=== PATIENT | female | born 1995 | race Caucasian/White ===

== ENCOUNTER 2017-11-03 04:04 | Emergency (ER) | payer OTHER ==
[~2017-11-03] VITALS: Ht 160 cm; Wt 85.0 kg
[2017-11-03 04:12] VITALS: BP 133/86
--- NOTE | 2017-11-03 04:17 | NUR ---
RETURNED BACK TO LOBBY AMBULATORY, IN STABLE CONDITION , NOT IN RESPIRATORY DISTRESS, A/W FOR BED, ERMD NOTED
--- NOTE | 2017-11-03 05:06 | NUR ---
Patient ambulated to bed 12 with family. RN evaluating patient at bedside.
--- NOTE | 2017-11-03 05:10 | NUR ---
PATIENT PRESENTS TO ED WITH C/O WOKE UP WITH SOB, WITH PAIN ON HER LEFT SIDE OF UPPER BODY. AAOX4 WITH EVEN AND STEADY GAIT; LUNGS CLEAR BL; HR EVEN AND REGULAR; PT DENIES ANY FEVER, CP, AND COUGH AT THIS TIME; PATIENT STATES PAIN OF 9/10 AT THIS TIME; DENIES N/V/D; SKIN IS PINK/WARM/DRY; VSS; PATIENT POSITIONED FOR COMFORT; HOB ELEVATED; BEDRAILS UP X2; BED DOWN. ER MD MADE AWARE OF PT STATUS.
[2017-11-03] MEDS: KETOROLAC 60 MG/2 ML VIAL IM ONE (06:38)
[2017-11-03 06:56] VITALS: BP 102/66
--- NOTE | 2017-11-03 06:56 | NUR ---
Patient discharged with v/s stable. Written and verbal after care instructions given and explained. Patient alert, oriented and verbalized understanding of instructions. Ambulatory with steady gait. All questions addressed prior to discharge. ID band removed. Patient advised to follow up with PMD. Rx of BRICENO AND PREDNISONE given. Patient educated on indication of medication including possible reaction and side effects. Opportunity to ask questions provided and answered.
== END 2017-11-03 06:56 | disposition home or self-care (01) ==
LOC: MED 04:04
DX: R06.02 Shortness of breath (principal); M25.512 Pain in left shoulder; R05 Cough
CPT/HCPCS: 96372; 99283; J1885

== ENCOUNTER 2018-05-02 20:56 | Emergency (ER) | payer MEDICAID, OTHER ==
[~2018-05-02] VITALS: Ht 160 cm; Wt 85.7 kg
[2018-05-02 21:11] VITALS: BP 111/65
--- NOTE | 2018-05-02 21:13 | NUR ---
TO LOBBY A/W BED, FREIDA KAY NOTED
--- NOTE | 2018-05-02 22:32 | NUR ---
PT TAKEN TO BED 1
--- NOTE | 2018-05-02 22:35 | NUR ---
23/ CAME IN W C/O 08/21 RLQ PAIN, INTERMITTENT X 1 WEEK. ABD SOFT, ROUND, +TENDERNESS TO RLQ. REPORTS N/V X1, DENIES DIARRHEA, FEVER/CHILLS, HEMATURIA/DYSURIA. DENIES OTHER PMH/RX/OTC
[2018-05-03] MEDS ORDERED: KETOROLAC 60 MG/2 ML VIAL IM ONE (00:15)
[2018-05-03 00:16] LABS: APPEARANCE,URINE SL CLOUDY (CLEAR); BILIRUBIN,URINE NEGATIVE (NEGATIVE); BLOOD, URINE NEGATIVE (NEGATIVE); COLOR,URINE YELLOW (YELLOW); LEUKOCYTE ESTERASE ,URINE NEGATIVE (NEGATIVE); NITRITE, URINE NEGATIVE (NEGATIVE); UGLUCOSE NEGATIVE (NEGATIVE)
[2018-05-03 00:38] LABS: BASOPHILS # (AUTO) 0.1 K/uL (0.00-0.22); BASOPHILS % (AUTO) 0.8 % (0.0-2.0); EOSINOPHILS # (AUTO) 0.1 K/uL (0-0.4); HEMOGLOBIN 12.8 g/dL (12.0-16.0); LYMPHOCYTES # (AUTO) 2.8 K/uL (2.5-16.5); LYMPHOCYTES % (AUTO) 31.5 % (20.5-51.1); MEAN CORPUSCULAR HEMOGLOBIN 30 pg (27-31); MEAN CORPUSCULAR HGB CONC 35 g/dL (33-37); MONOCYTES # (AUTO) 0.6 K/uL (0.8-1.0); MONOCYTES % (AUTO) 7.2 % (1.7-9.3); NEUTROPHILS # (AUTO) 5.2 K/uL (1.8-7.7); NEUTROPHILS % (AUTO) 59.5 % (42.2-75.2); PLATELET COUNT (AUTO) 222 K/uL (140-450); RED BLOOD CELL COUNT(AUTO) 4.21 MIL/uL (4.20-5.40); RED CELL DISTRIBUTION WIDTH 12.9 % (11.6-13.7); WHITE BLOOD COUNT (AUTO) 8.7 K/uL (4.8-10.8)
[2018-05-03 00:46] LABS: ANION GAP 10.9 (8-16); CARBON DIOXIDE 28.9 mmol/L (21-32); CREATININE 0.7 mg/dL (0.6-1.3); POTASSIUM 3.8 mmol/L (3.5-5.1)
[2018-05-03 00:53] LABS: ALBUMIN 3.7 g/dL (3.4-5.0); TOTAL BILIRUBIN 0.2 mg/dL (0.0-1.0)
--- NOTE | 2018-05-03 01:48 | NUR ---
Patient discharged with v/s stable. Written and verbal after care instructions given and explained. Patient alert, oriented and verbalized understanding of instructions. Ambulatory with steady gait. All questions addressed prior to discharge. ID band removed. Patient advised to follow up with PMD. Rx of BENTYL given. Patient educated on indication of medication including possible reaction and side effects. Opportunity to ask questions provided and answered.
[2018-05-03 01:50] VITALS: BP 126/55
== END 2018-05-03 01:48 | disposition home or self-care (01) ==
LOC: MED 20:56
DX: R10.11 Right upper quadrant pain (principal); R19.7 Diarrhea, unspecified; R11.10 Vomiting, unspecified
CPT/HCPCS: 36415; 76705; 80053; 81003; 81025; 83690; 85025; 96372; 99285; J1885; Q0092

== ENCOUNTER 2018-08-18 16:32 | Inpatient (IN) | payer MEDICAID ==
[~2018-08-18] VITALS: Ht 160 cm; Wt 83.9 kg
[2018-08-18 16:41] VITALS: BP 112/53
[2018-08-18] MEDS ORDERED: NACL 0.9% 1,000 ML IV ONE ×2 (16:49→23:15)
--- NOTE | 2018-08-18 17:00 | NUR ---
PT AMBULATED TO THE RESTROOM WITH STEADY GAIT
--- NOTE | 2018-08-18 17:12 | NUR ---
23YO F BIBA FOR SI. PT DENIES ANY SI AT THIS TIME. PT REPORTS THROBBING HEADACHE 10/10 PAIN, AND RUQ PAIN TENDER TO TOUCH, ABD SOFT, BS ACTIVE X4, LS CLEAR THROUGHOUT. RR EVEN AND UNLABOLRED, PT DENIES ANT CP, SOB DIZZINESS, BLURRED VISION, FEVER COUGH AT THIS TIME. PT STATE THAT SHE WAS IN AN ARGUMENT WITH BOYFRIEND WHEN PT STARTED WITH SI. WILL CONTINUE TO MONITOR ER MD MADE AWARE. WILL CONTINUE TO MONITOR. SI PRECAUTIONS IN PLACE
--- NOTE | 2018-08-18 17:30 | NUR ---
PT PROVIDED WITH BLANKET
[2018-08-18 17:36] LABS: BASOPHILS # (AUTO) 0.1 K/uL (0.00-0.22); BASOPHILS % (AUTO) 1.1 % (0.0-2.0); EOSINOPHILS % (AUTO) 0.4 % (0.0-4.0); HEMATOCRIT 41.2 % (36-48); HEMOGLOBIN 13.9 g/dL (12.0-16.0); LYMPHOCYTES # (AUTO) 1.2 K/uL (2.5-16.5); LYMPHOCYTES % (AUTO) 11.3 % (20.5-51.1); MEAN CORPUSCULAR HEMOGLOBIN 30 pg (27-31); MEAN CORPUSCULAR HGB CONC 34 g/dL (33-37); MEAN CORPUSCULAR VOLUME 89.5 fL (80-94); MONOCYTES # (AUTO) 0.5 K/uL (0.8-1.0); MONOCYTES % (AUTO) 4.6 % (1.7-9.3); NEUTROPHILS % (AUTO) 82.6 % (42.2-75.2); PLATELET COUNT (AUTO) 264 K/uL (140-450); RED CELL DISTRIBUTION WIDTH 13.3 % (11.6-13.7); WHITE BLOOD COUNT (AUTO) 10.9 K/uL (4.8-10.8)
--- NOTE | 2018-08-18 17:46 | NUR ---
EMT AT BEDSIDE FOR EKG
[2018-08-18 18:00] LABS: APPEARANCE,URINE CLEAR (CLEAR); BILIRUBIN,URINE NEGATIVE (NEGATIVE); BLOOD, URINE NEGATIVE (NEGATIVE); COLOR,URINE YELLOW (YELLOW); LEUKOCYTE ESTERASE ,URINE NEGATIVE (NEGATIVE); NITRITE, URINE NEGATIVE (NEGATIVE); UGLUCOSE NEGATIVE (NEGATIVE)
[2018-08-18 18:02] LABS: ALBUMIN 3.9 g/dL (3.4-5.0); ANION GAP 7.4 (8-16); ASPARTATE AMINOTRANSFERASE 24 U/L (15-37); CARBON DIOXIDE 27.1 mmol/L (21-32); CHLORIDE 104 mmol/L (98-107); CREATININE 0.7 mg/dL (0.6-1.3); GFR ARICAN-AMERICAN 136 mL/min (>90); GLUCOSE 92 mg/dL (74-106); POTASSIUM 3.5 mmol/L (3.5-5.1); SODIUM SERUM 135 mmol/L (136-145); TOTAL BILIRUBIN 0.3 mg/dL (0.0-1.0); UREA NITROGEN, BLOOD 15 mg/dL (7-18)
[2018-08-18 18:04] LABS: BARBITURATE, URINE NEG. ng/ml (NEG <=200); BENZODIAZEPINE, URINE NEG. ng/mL (NEG <=200); CANNABINOID, URINE NEG. ng/mL (NEG <=50); COCAINE, URINE NEG. ng/mL (NEG <=300); OPIATE, URINE NEG. ng/mL (NEG <=2000); PHENCYCLIDINE SCREEN,URINE NEG. ng/mL (NEG <=25)
[2018-08-18 18:05] LABS: SALICYLATE < 2.8 mg/dL (2.8-20.0)
--- NOTE | 2018-08-18 18:33 | NUR ---
PT RESTING IN NO APPEARENT DISTRESS WILL CONTINUE TO MONITOR
--- NOTE | 2018-08-18 19:10 | NUR ---
PT SLEEPING IN BED, VITALS STABLE.
--- NOTE | 2018-08-18 20:11 | NUR ---
PT SLEEPING IN BED, VITALS STABLE. EMT AT BEDSIDE.
--- NOTE | 2018-08-18 21:23 | NUR ---
PT SITTING UP IN BED, ASKED FOR SOME WATER. EMT AT BEDSIDE.
[2018-08-18] MEDS ORDERED: ACETAMINOPHEN 325 MG TAB PO PRN (22:00)
[2018-08-18] MEDS ORDERED: ONDANSETRON 4 MG/2 ML VIAL IVP PRN (22:00)
--- NOTE | 2018-08-18 22:02 | NUR ---
Packet faxed to [facility]- [facility] intake [facility]- [facility] intake [facility]wal -Carlos intake [facility]- Milag[facility] intake [facility]- [facility] intake [facility]- Jarvis intake At this time there are no vacancy ,ER cost report clerkjohn White made aware, will notify ER is placement is found.
--- NOTE | 2018-08-18 22:24 | NUR ---
ADMITTED PT FROM ER VIA WHEELCHAIR. AAOX4. DX: SUICIDAL IDEATION; 5150 HOLD. NO C/O PAIN OR SOB. NO SUICIDAL IDEATION AT THIS TIME. PT IS CALM AND COOPERATIVE. IV TO LEFT AC#20G, PATENT AND INTACT. PT HAS SUPERFICIAL CUTS TO LEFT ARM. PT HAS 1:1 SITTER.
--- NOTE | 2018-08-18 22:25 | NUR ---
Patient will be admitted to care of DR. MONTELONGO. Admited to MED SURG. Will go to room 109A. Belongings list completed. Report to ZAHIDA MAHARAJ.
--- NOTE | 2018-08-18 22:30 | NUR ---
Pt report given to ZAHIDA MAHARAJ. Transfer of care at this time.PT VITALS STABLE.
[2018-08-18 22:45] VITALS: BP 89/45
[2018-08-18 22:45] LABS: CHOL/HDL RATIO 4.4 (1-4.5); FREE T4 (FREE THYROXINE) 0.92 ng/dL (0.76-1.46); MAGNESIUM 1.9 mg/dL (1.8-2.4); PHOSPHORUS 3.7 mg/dL (2.5-4.9); THYROID STIMULATING HORMONE 0.6 uIU/mL (0.34-3.74)
--- NOTE | 2018-08-18 22:50 | NUR ---
DR. THEODORE MADE AWARE OF PT'S BP 89/45. PER MD, SHE WILL ORDER NS BOLUS 1000 ML.
[2018-08-18 22:59] LABS: PROTHROMBIN TIME 10.2 secs (10.8-13.4)
[2018-08-18] MEDS ORDERED: SERTRALINE 50 MG TAB PO SCH (23:15)
[2018-08-19 00:45] VITALS: BP 98/62
--- NOTE | 2018-08-19 00:45 | NUR ---
CHECKED VS. BP 98/62, HR 68. DR. THEODORE MADE AWARE. NO NEW ORDER.
--- NOTE | 2018-08-19 03:00 | NUR ---
PT SLEEPING. EASILY AROUSABLE. RESP EVEN AND UNLABORED. NO S/S O OF PAIN.
--- NOTE | 2018-08-19 05:05 | NUR ---
PT SLEEPING. NO S/S OF RESP DISTRESS.
--- NOTE | 2018-08-19 05:31 | NUR ---
still no vacancy at any of the designated facilities , will endorsed to Am shift to continue to look for placement,
--- NOTE | 2018-08-19 07:05 | NUR ---
ENDORSED PT TO DAY SHIFT NURSE. PT IN STABLE CONDITION.
--- NOTE | 2018-08-19 07:30 | NUR ---
RECEIVED PT ON BED ASLEEP, AROUSABLE, ORIENTED X4. NO SOB NOTED. NO C/O PAIN AT THIS TIME. IV TO LT AC PATENT AND INTACT. CHEST CLEAR. ABDOMEN SOFT, BOWEL SOUNDS PRESENT. WITH SUPERFICIAL LACERATIONS NOTED ON LT FOREARM, OPEN TO AIR. NO EDEMA NOTED. WITH SITTER FOR SUICIDAL IDEATION. BED ON LOW POSITION. INSTRUCTED TO CALL FOR ASSISTANCE, PT VERBALIZED UNDERSTANDING.
[2018-08-19 07:41] LABS: BASOPHILS % (AUTO) 0.5 % (0.0-2.0); EOSINOPHILS # (AUTO) 0.1 K/uL (0-0.4); HEMATOCRIT 36.4 % (36-48); HEMOGLOBIN 12.3 g/dL (12.0-16.0); LYMPHOCYTES # (AUTO) 1.4 K/uL (2.5-16.5); LYMPHOCYTES % (AUTO) 18.1 % (20.5-51.1); MEAN CORPUSCULAR HEMOGLOBIN 30 pg (27-31); MEAN CORPUSCULAR HGB CONC 34 g/dL (33-37); MEAN CORPUSCULAR VOLUME 89.5 fL (80-94); MONOCYTES # (AUTO) 0.5 K/uL (0.8-1.0); MONOCYTES % (AUTO) 6.5 % (1.7-9.3); NEUTROPHILS # (AUTO) 5.7 K/uL (1.8-7.7); NEUTROPHILS % (AUTO) 73.9 % (42.2-75.2); PLATELET COUNT (AUTO) 221 K/uL (140-450); RED BLOOD CELL COUNT(AUTO) 4.06 MIL/uL (4.20-5.40); RED CELL DISTRIBUTION WIDTH 13.5 % (11.6-13.7); WHITE BLOOD COUNT (AUTO) 7.7 K/uL (4.8-10.8)
[2018-08-19 07:47] LABS: MAGNESIUM 2.1 mg/dL (1.8-2.4); PHOSPHORUS 2.8 mg/dL (2.5-4.9)
--- NOTE | 2018-08-19 07:53 | NUR ---
[facility] aware patient is in unit. will continue to look for placement throughout shift. will update unit when new information is received.
[2018-08-19 07:58] LABS: CARBON DIOXIDE 26.8 mmol/L (21-32); CREATININE 0.6 mg/dL (0.6-1.3); POTASSIUM 3.8 mmol/L (3.5-5.1)
[2018-08-19 08:00] VITALS: BP 105/66
--- NOTE | 2018-08-19 08:12 | NUR ---
PATIENT HAS BEEN SCREENED AND CATEGORIZED LOW NUTRITION RISK. PATIENT WILL BE SEEN WITHIN 7 DAYS OF ADMISSION. 08/25/[address]
[2018-08-19] MEDS ORDERED: DOCUSATE SODIUM 100 MG GELCAP PO SCH (09:00)
--- NOTE | 2018-08-19 09:55 | NUR ---
OFFERED PT WITH FLU VACCINE, BUT PT REFUSED. RISKS AND BENEFITS EXPLAINED, PT VERBALIZED UNDERSTANDING.
--- NOTE | 2018-08-19 13:30 | NUR ---
PT SEEN BY DR. CARVALHO, 5150 HOLD HAS BEEN LIFTED UP. PER MD PT DOES NOT MEET THE CRITERIA.
--- NOTE | 2018-08-19 13:54 | NUR ---
No updates from contacted facilities at this time. No bed vacancies at following facilities: [facility] Y[facility] Ceballos s/w Estrell[facility] Coleman s/w Nevin Clutier s/w Elle Trevino s/w Belinda manrique s/w [facility] will continue to look for placement and will endorse to next shift
[2018-08-19] MEDS ORDERED: SERT-146 PO (14:00)
[2018-08-19] MEDS ORDERED: BUS5 PO (14:03)
--- NOTE | 2018-08-19 14:30 | NUR ---
DISCHARGE INSTRUCTIONS AND PRESCRIPTIONS GIVEN TO PT WHICH VERBALIZED FULL UNDERSTANDING OF THE INSTRUCTIONS GIVEN AND THE NEED TO FOLLOW UP WITH WITH PCP WITHIN 7 DAYS. ARM BANDS AND IV REMOVED, CANNULA TIP INTACT.
--- NOTE | 2018-08-19 14:35 | NUR ---
ESCORTED PT TO THE FRONT LOBBY IN STABLE CONDITION. CALM. NO COMPLAINTS MADE. PT IS D/C HOME WITH DAD.
[2018-08-19] MEDS ORDERED: SERTRALINE 50 MG TAB PO SCH (21:00)
== END 2018-08-19 14:35 | disposition home or self-care (01) | DRG 426 ==
LOC: MED 16:32 → MTU 21:56
PROVIDERS: ADMIT General Practice; ATTEND General Practice
DX: E87.1 Hypo-osmolality and hyponatremia (principal); R45.851 Suicidal ideations; E83.51 Hypocalcemia; F41.0 Panic disorder [episodic paroxysmal anxiety]; E78.5 Hyperlipidemia, unspecified; D72.829 Elevated white blood cell count, unspecified; F43.0 Acute stress reaction; F41.1 Generalized anxiety disorder; Z59.0 Homelessness
CPT/HCPCS: 36415; 71045; 80048; 80053; 80305; 81003; 81025; 82150; 83036; 83690; 83735; 83880; 84100; 84134; 84439; 84443; 84484; 85025; 85610; 85730; 87081; 93005; 96360; 96361; 99285; G0480; G0482; J7030; Q0092

== ENCOUNTER 2019-04-21 13:07 | Emergency (ER) | payer MEDICAID ==
[~2019-04-21] VITALS: Ht 162.6 cm; Wt 88.2 kg
[~2019-04-21 13:07] MED LIST: BUS5 PO
[2019-04-21 13:31] VITALS: BP 112/74
--- NOTE | 2019-04-21 13:50 | NUR ---
CALL TO BED , NO RESPONSE. PATIENT LEFT WITHOUT BEING SEEN BY DR. DE. NO FURTHER CARE PROVIDED FOR PATIENT.
--- NOTE | 2019-04-21 13:55 | NUR ---
CALLED FOR THE SECOND TIME RESPONSE
--- NOTE | 2019-04-21 14:00 | NUR ---
CALL FOR THE THIRD TIME NO RESPONSE
== END 2019-04-21 13:50 | disposition left against medical advice (07) ==
LOC: MED 13:07
DX: J02.9 Acute pharyngitis, unspecified (principal); Z53.21 Procedure and treatment not carried out due to patient leaving prior to being seen by health care provider

== ENCOUNTER 2020-01-25 03:55 | Emergency (ER) | payer MEDICAID ==
[~2020-01-25] VITALS: Ht 165.1 cm; Wt 94.8 kg
[2020-01-25 04:01] VITALS: BP 118/72
--- NOTE | 2020-01-25 04:27 | NUR ---
24 YEAR OLD FEMALE COMPLAINS OF URINARY BURNING SINCE YESTERDAY MORNING. PATIENT STATES THAT HER VAGINA HAS BEEN HURTING WITH A BURNING SENSATION WHEN NOT URINATING. PATIENT AOX4, BREATHING EVEN AND UNLABORED, SKIN WARM AND DRY. BED IN LOWEST POSITION, LOCKED, BED RAIL UPX1. PMH - DENIES ALLERGIES - NKA
[2020-01-25 05:07] LABS: APPEARANCE,URINE CLOUDY (CLEAR); BILIRUBIN,URINE NEGATIVE (NEGATIVE); BLOOD, URINE 1+ (NEGATIVE); COLOR,URINE YELLOW (YELLOW); LEUKOCYTE ESTERASE ,URINE 3+ (NEGATIVE); NITRITE, URINE NEGATIVE (NEGATIVE); UGLUCOSE NEGATIVE (NEGATIVE)
--- NOTE | 2020-01-25 05:20 | NUR ---
PATIENT ALERT AND AWAKE, BREATHING EVEN AND UNLABORED
[2020-01-25 05:22] LABS: RBC,URINE 0-5 /HPF (0-5); WBC,URINE 60-80 /HPF (0-5)
[2020-01-25] MEDS ORDERED: CEPHALEXIN 500 MG CAP PO STA (05:53)
[2020-01-25 06:18] VITALS: BP 113/60
--- NOTE | 2020-01-25 06:18 | NUR ---
Patient discharged with v/s stable. Written and verbal after care instructions about urinary tract infections given and explained. Patient alert, oriented and verbalized understanding of instructions. Ambulatory with steady gait. All questions addressed prior to discharge. ID band removed. Patient advised to follow up with PMD. Rx of Keflex given. Patient educated on indication of medication including possible reaction and side effects. Opportunity to ask questions provided and answered.
== END 2020-01-25 06:18 | disposition home or self-care (01) ==
LOC: MED 03:55
DX: N39.0 Urinary tract infection, site not specified (principal); Z79.899 Other long term (current) drug therapy
CPT/HCPCS: 81001; 81025; 87086; 87186; 99283

== ENCOUNTER 2020-07-20 00:39 | Emergency (ER) | payer MEDICAID ==
[~2020-07-20] VITALS: Ht 160 cm; Wt 95.3 kg
[2020-07-20 00:42] VITALS: BP 109/62
--- NOTE | 2020-07-20 00:46 | NUR ---
PT AMBULATED TO BED 4 WITH STEADY GAIT
--- NOTE | 2020-07-20 00:46 | NUR ---
URINE SAMPLE PROVIDED
--- NOTE | 2020-07-20 00:51 | NUR ---
25 female coming in for hematoma on the forehead s/p getting hit with car door when tried to open it x 2 hours. denies any LOC. reports headache but only localized to hematoma locations. states 10/10 pain. denies any other s/sx. pmhx: denies nka
[2020-07-20 01:00] VITALS: BP 109/62
--- NOTE | 2020-07-20 01:05 | NUR ---
Patient discharged with v/s stable. Written and verbal after care instructions given and explained. Patient verbalized understanding. Ambulatory with steady gait. All questions addressed prior to discharge. Advised to follow up with PMD.
== END 2020-07-20 01:05 | disposition home or self-care (01) ==
LOC: MED 00:39
DX: S00.83XA Contusion of other part of head, initial encounter (principal); Z79.899 Other long term (current) drug therapy; W50.0XXA Accidental hit or strike by another person, initial encounter; Y93.89 Activity, other specified; Y92.89 Other specified places as the place of occurrence of the external cause; Y99.8 Other external cause status
CPT/HCPCS: 99281

== ENCOUNTER 2021-12-20 21:29 | Emergency (ER) | payer MEDICAID ==
[~2021-12-20] VITALS: Ht 160 cm; Wt 84.8 kg
[2021-12-20 21:55] VITALS: BP 109/59
--- NOTE | 2021-12-20 22:02 | NUR ---
Place on chair 1.
[2021-12-20] MEDS ORDERED: ALUMINUM HYD/MAG/SIMETHICONE 30 ML UDC PO ONE (22:05)
[2021-12-20] MEDS ORDERED: FAMOTIDINE 20 MG TAB PO ONE (22:05)
--- NOTE | 2021-12-20 22:17 | NUR ---
Patient transfer to radiology dept via wheelchair with civil drafting technician.
--- NOTE | 2021-12-20 22:21 | NUR ---
Patient came back from radiology dept to chair 1.
--- NOTE | 2021-12-20 22:24 | NUR ---
Patient BIB by family from home. C/O Epigastric pain x 1 month. Patient reported, had on and off epigastric pain ~ 1 month, denies Hx gastritis or GERD. A/O,X4, nausea, vomitting, epigastric pain, pain rate 8/10.
[2021-12-20 22:32] LABS: EOSINOPHILS # (AUTO) 0.7 K/uL (0-0.4); EOSINOPHILS % (AUTO) 7.1 % (0.0-4.0); HEMATOCRIT 39.7 % (36-48); HEMOGLOBIN 13.6 g/dL (12.0-16.0); LYMPHOCYTES # (AUTO) 0.7 K/uL (2.5-16.5); LYMPHOCYTES % (AUTO) 7.1 % (20.5-51.1); MEAN CORPUSCULAR HEMOGLOBIN 30 pg (27-31); MEAN CORPUSCULAR HGB CONC 34 g/dL (33-37); MEAN CORPUSCULAR VOLUME 86.7 fL (80-94); MONOCYTES # (AUTO) 2.7 K/uL (0.8-1.0); MONOCYTES % (AUTO) 28.6 % (1.7-9.3); NEUTROPHILS # (AUTO) 5.5 K/uL (1.8-7.7); NEUTROPHILS % (AUTO) 57.2 % (42.2-75.2); PLATELET COUNT (AUTO) 287 K/uL (140-450); RED BLOOD CELL COUNT(AUTO) 4.58 MIL/uL (4.20-5.40); RED CELL DISTRIBUTION WIDTH 13.3 % (11.6-13.7); WHITE BLOOD COUNT (AUTO) 9.6 K/uL (4.8-10.8)
--- NOTE | 2021-12-20 22:38 | NUR ---
Dr. Delacruz at chair 1 to exam patient.
[2021-12-20 22:53] LABS: ALBUMIN 3.7 g/dL (3.4-5.0); ANION GAP 11.4 (8-16); CARBON DIOXIDE 30.2 mmol/L (21-32); CREATININE 0.7 mg/dL (0.6-1.3); POTASSIUM 3.6 mmol/L (3.5-5.1); TOTAL BILIRUBIN 0.2 mg/dL (0.0-1.0)
--- NOTE | 2021-12-20 23:12 | NUR ---
Dr. Delacruz at chair 1 to explain result and treatment plans.
[2021-12-20] MEDS ORDERED: MAG355OR2 PO (23:17)
[2021-12-20] MEDS ORDERED: FAMO-90 PO (23:17)
[2021-12-20 23:25] VITALS: BP 109/59
--- NOTE | 2021-12-20 23:25 | NUR ---
Patient discharged with v/s stable. Written and verbal after care instructions given and explained. Patient alert, oriented and verbalized understanding of instructions. Ambulatory with steady gait. All questions addressed prior to discharge. ID band removed. Patient advised to follow up with PMD. Rx of Pepcid and Maalox given. Patient educated on indication of medication including possible reaction and side effects. Opportunity to ask questions provided and answered.
== END 2021-12-20 23:25 | disposition home or self-care (01) ==
LOC: MED 21:29
DX: K21.9 Gastro-esophageal reflux disease without esophagitis (principal)
CPT/HCPCS: 36415; 71045; 80053; 81002; 81025; 83690; 85025; 93005; 99285

== ENCOUNTER 2022-09-15 09:16 | Emergency (ER) | payer MEDICAID, OTHER ==
[~2022-09-15] VITALS: Ht 172.7 cm; Wt 81.6 kg
[~2022-09-15 09:16] MED LIST changes: +FAMO-90 PO; +MAG355OR2 PO
[2022-09-15 09:24] VITALS: BP 121/76
--- NOTE | 2022-09-15 09:38 | NUR ---
27 Y/O FEMALE BIB SELF C/O PRODUCTIVE COUGH X2 DAYS, STATES THAT THE MUCUS IS YELLOWISH, PER PT HER CHILDREN ARE SICK AT HOME WITH BRONCHITIS. TOOK ROBITUSSIN WITH MINIMAL RELIEF. STATES CHEST PAIN AND ITCHING FEELING ON THE THROAT WHEN COUGHING PMH: DENIES ABRAHAM
[2022-09-15] MEDS ORDERED: PRON INH (10:59)
[2022-09-15] MEDS ORDERED: BENZ150C2 PO (10:59)
[2022-09-15] MEDS ORDERED: IBUP-1842 PO (11:02)
--- NOTE | 2022-09-15 11:07 | NUR ---
Patient discharged with v/s stable. Written and verbal after care instructions ABOUT UPPER RESPIRATORY INFECTION given and explained. Patient alert, oriented and verbalized understanding of instructions. Ambulatory with steady gait. All questions addressed prior to discharge. ID band removed. Patient advised to follow up with PMD. Rx of BENZONATATE, MOTRIN, AND ALBUTEROL given. Patient educated on indication of medication including possible reaction and side effects. Opportunity to ask questions provided and answered.
== END 2022-09-15 11:07 | disposition home or self-care (01) ==
LOC: MED 09:16
DX: J06.9 Acute upper respiratory infection, unspecified (principal)
CPT/HCPCS: 99283

== ENCOUNTER 2023-04-11 18:14 | Emergency (ER) | payer MEDICAID, OTHER ==
[~2023-04-11] VITALS: Ht 160 cm; Wt 93.5 kg
[~2023-04-11 18:14] MED LIST changes: +BENZ150C2 PO; +IBUP-1842 PO; +PRON INH
[2023-04-11 18:31] VITALS: BP 131/64
[2023-04-11] MEDS ORDERED: KETOROLAC 30 MG/ML VIAL IM ONE (19:05)
[2023-04-11 19:16] LABS: BASOPHILS # (AUTO) 0.1 K/uL (0.00-0.22); BASOPHILS % (AUTO) 0.6 % (0.0-2.0); EOSINOPHILS # (AUTO) 0.1 K/uL (0-0.4); EOSINOPHILS % (AUTO) 0.9 % (0.0-4.0); HEMATOCRIT 38.5 % (36-48); HEMOGLOBIN 13.1 g/dL (12.0-16.0); LYMPHOCYTES # (AUTO) 2.4 K/uL (2.5-16.5); LYMPHOCYTES % (AUTO) 24.7 % (20.5-51.1); MEAN CORPUSCULAR HEMOGLOBIN 31 pg (27-31); MEAN CORPUSCULAR HGB CONC 34 g/dL (33-37); MONOCYTES # (AUTO) 0.4 K/uL (0.8-1.0); MONOCYTES % (AUTO) 4.5 % (1.7-9.3); NEUTROPHILS # (AUTO) 6.7 K/uL (1.8-7.7); NEUTROPHILS % (AUTO) 69.3 % (42.2-75.2); PLATELET COUNT (AUTO) 311 K/uL (140-450); RED BLOOD CELL COUNT(AUTO) 4.19 MIL/uL (4.20-5.40); RED CELL DISTRIBUTION WIDTH 14.8 % (11.6-13.7); WHITE BLOOD COUNT (AUTO) 9.7 K/uL (4.8-10.8)
[2023-04-11 19:31] LABS: ALBUMIN 3.6 g/dL (3.4-5.0); ANION GAP 9.1 (8-16); CARBON DIOXIDE 28.9 mmol/L (21-32); CREATININE 0.7 mg/dL (0.6-1.3); TOTAL BILIRUBIN 0.3 mg/dL (0.0-1.0)
--- NOTE | 2023-04-11 19:51 | NUR ---
URINE IS SENT TO THE LAB
[2023-04-11] MEDS ORDERED: ACET-10509 PO (20:01)
[2023-04-11] MEDS ORDERED: ONDA-188 PO (20:01)
[2023-04-11 20:05] LABS: APPEARANCE,URINE CLEAR (CLEAR); BILIRUBIN,URINE NEGATIVE (NEGATIVE); BLOOD, URINE NEGATIVE (NEGATIVE); COLOR,URINE YELLOW (YELLOW); LEUKOCYTE ESTERASE ,URINE 1+ (NEGATIVE); NITRITE, URINE NEGATIVE (NEGATIVE); PH,URINE 6.5 (5.0-9.0); UGLUCOSE NEGATIVE (NEGATIVE)
[2023-04-11 20:22] LABS: RBC,URINE 0-5 /HPF (0-5)
[2023-04-11] MEDS ORDERED: CEPH-588 PO (20:37)
--- NOTE | 2023-04-11 20:42 | NUR ---
Patient discharged with v/s stable. Written and verbal after care instructions given and explained. Patient alert, oriented and verbalized understanding of instructions. Ambulatory with steady gait. All questions addressed prior to discharge. ID band removed. Patient advised to follow up with PMD. Rx of TYLENOL EXTRA STRENGTH TAB AND ZOFRAN given. Opportunity to ask questions provided and answered.
== END 2023-04-11 20:42 | disposition home or self-care (01) ==
LOC: MED 18:14
DX: M54.50 Low back pain, unspecified (principal); R10.32 Left lower quadrant pain; R50.9 Fever, unspecified; R19.7 Diarrhea, unspecified; R11.0 Nausea; Z79.899 Other long term (current) drug therapy
CPT/HCPCS: 36415; 80053; 81001; 81025; 83690; 85025; 87086; 96372; 99283; J1885

== ENCOUNTER 2023-10-11 17:34 | Emergency (ER) | payer MEDICAID ==
[~2023-10-11] VITALS: Ht 160 cm; Wt 96.6 kg
[~2023-10-11 17:34] MED LIST changes: +ACET-10509 PO; +CEPH-588 PO; +ONDA-188 PO
[2023-10-11 17:46] VITALS: BP 96/58; PULSE 70; RESP 20; TEMP 98.1; O2SAT 97
[2023-10-11] MEDS ORDERED: NACL 0.9% 1,000 ML IV SCH (18:15)
[2023-10-11] MEDS ORDERED: KETOROLAC 30 MG/ML VIAL IVP ONE (18:15)
[2023-10-11] MEDS ORDERED: DEXAMETHASONE 10 MG/ML VIAL IVP ONE (18:15)
[2023-10-11 19:12] VITALS: TEMP 98.4
[2023-10-11 19:13] LABS: BASOPHILS % (AUTO) 0.3 % (0.0-2.0); EOSINOPHILS % (AUTO) 0.4 % (0.0-4.0); HEMATOCRIT 38.7 % (36-48); LYMPHOCYTES # (AUTO) 2.3 K/uL (2.5-16.5); LYMPHOCYTES % (AUTO) 27.2 % (20.5-51.1); MEAN CORPUSCULAR HEMOGLOBIN 30 pg (27-31); MEAN CORPUSCULAR HGB CONC 34 g/dL (33-37); MEAN CORPUSCULAR VOLUME 90.9 fL (80-94); MONOCYTES # (AUTO) 0.3 K/uL (0.8-1.0); NEUTROPHILS # (AUTO) 5.9 K/uL (1.8-7.7); NEUTROPHILS % (AUTO) 69.1 % (42.2-75.2); PLATELET COUNT (AUTO) 268 K/uL (140-450); RED BLOOD CELL COUNT(AUTO) 4.26 MIL/uL (4.20-5.40); RED CELL DISTRIBUTION WIDTH 14.7 % (11.6-13.7); WHITE BLOOD COUNT (AUTO) 8.6 K/uL (4.8-10.8)
[2023-10-11 19:39] LABS: ANION GAP 10.7 (8-16); CALCIUM 8.4 mg/dL (8.5-10.1); CARBON DIOXIDE 32.1 mmol/L (21-32); POTASSIUM 3.8 mmol/L (3.5-5.1); TOTAL BILIRUBIN 0.4 mg/dL (0.0-1.0)
[2023-10-11] MEDS ORDERED: DEXAMETHASONE 10 MG/ML VIAL ONE (20:05)
[2023-10-11] MEDS ORDERED: KETOROLAC 30 MG/ML VIAL ONE (20:06)
[2023-10-11 20:11] LABS: FLU A ANTIGEN negative (NEGATIVE); FLU B ANTIGEN NEGATIVE (NEGATIVE)
[2023-10-11] MEDS ORDERED: ONDA-188 SL (20:20)
[2023-10-11] MEDS ORDERED: IBUP-2213 PO (20:20)
[2023-10-11] MEDS ORDERED: AMOX1TAB8 PO (20:20)
[2023-10-11 21:12] VITALS: BP 99/62; PULSE 87; RESP 18; O2SAT 97
== END 2023-10-11 21:13 | disposition home or self-care (01) ==
LOC: MED 17:34
DX: J03.90 Acute tonsillitis, unspecified (principal); Z20.822 Contact with and (suspected) exposure to COVID-19; R11.2 Nausea with vomiting, unspecified; Z79.899 Other long term (current) drug therapy
CPT/HCPCS: 36415; 80053; 81025; 83690; 85025; 87081; 87426; 87804; 96361; 96374; 96375; 99284; J1100; J1885; J7030

== ENCOUNTER 2024-04-19 00:18 | Emergency (ER) | payer MEDICAID ==
[~2024-04-19] VITALS: Ht 160 cm; Wt 98.4 kg
[~2024-04-19 00:18] MED LIST changes: +AMOX1TAB8 PO; -BENZ150C2 PO; +BENZ150C7 PO; +IBUP-2213 PO; +ONDA-188 SL
[2024-04-19 00:33] VITALS: BP 103/54; PULSE 92; RESP 16; TEMP 98.5; O2SAT 98
[2024-04-19] MEDS ORDERED: IBUP-2213 PO (02:00)
[2024-04-19] MEDS ORDERED: ONDA8TAB87 PO (02:00)
[2024-04-19] MEDS ORDERED: PRED20TA5 PO (02:00)
[2024-04-19] MEDS: KETOROLAC 60 MG/2 ML VIAL IM ONE (02:22)
== END 2024-04-19 02:22 | disposition home or self-care (01) ==
LOC: MED 00:18
DX: J02.9 Acute pharyngitis, unspecified (principal); R05.9 Cough, unspecified; R11.0 Nausea; Z79.899 Other long term (current) drug therapy; Z79.2 Long term (current) use of antibiotics; Z79.1 Long term (current) use of non-steroidal anti-inflammatories (NSAID)
CPT/HCPCS: 81025; 96372; 99283; J1885

== ENCOUNTER 2024-05-17 14:22 | Emergency (ER) | payer MEDICAID ==
[~2024-05-17] VITALS: Ht 160 cm; Wt 95.3 kg
[~2024-05-17 14:22] MED LIST changes: +ONDA8TAB87 PO; +PRED20TA5 PO
[2024-05-17 14:52] VITALS: BP 121/72; PULSE 93; RESP 16; TEMP 97.5; O2SAT 97
[2024-05-17 16:09] LABS: BASOPHILS # (AUTO) 0.1 K/uL (0.00-0.22); BASOPHILS % (AUTO) 0.7 % (0.0-2.0); EOSINOPHILS # (AUTO) 0.1 K/uL (0-0.4); EOSINOPHILS % (AUTO) 0.9 % (0.0-4.0); HEMATOCRIT 37.9 % (36-48); HEMOGLOBIN 12.8 g/dL (12.0-16.0); LYMPHOCYTES # (AUTO) 2.2 K/uL (2.5-16.5); LYMPHOCYTES % (AUTO) 22.3 % (20.5-51.1); MEAN CORPUSCULAR HEMOGLOBIN 31 pg (27-31); MEAN CORPUSCULAR HGB CONC 34 g/dL (33-37); MEAN CORPUSCULAR VOLUME 93.3 fL (80-94); MONOCYTES # (AUTO) 0.6 K/uL (0.8-1.0); MONOCYTES % (AUTO) 6.1 % (1.7-9.3); NEUTROPHILS # (AUTO) 6.8 K/uL (1.8-7.7); PLATELET COUNT (AUTO) 253 K/uL (140-450); RED BLOOD CELL COUNT(AUTO) 4.06 MIL/uL (4.20-5.40); RED CELL DISTRIBUTION WIDTH 14.7 % (11.6-13.7); WHITE BLOOD COUNT (AUTO) 9.7 K/uL (4.8-10.8)
[2024-05-17 16:30] LABS: ANION GAP 11.5 (8-16); CALCIUM 8.3 mg/dL (8.5-10.1); CARBON DIOXIDE 27.3 mmol/L (21-32); CREATININE 0.6 mg/dL (0.6-1.3); POTASSIUM 3.8 mmol/L (3.5-5.1)
[2024-05-17 16:33] LABS: ALBUMIN 3.3 g/dL (3.4-5.0); BILIRUBIN,DIRECT 0.1 mg/dL (0.0-0.3); MAGNESIUM 1.8 mg/dL (1.8-2.4); PHOSPHORUS 3.5 mg/dL (2.5-4.9); TOTAL BILIRUBIN 0.3 mg/dL (0.0-1.0); TOTAL PROTEIN, SERUM 7.6 g/dL (6.4-8.2)
[2024-05-17 17:15] LABS: APPEARANCE,URINE CLEAR (CLEAR); BILIRUBIN,URINE NEGATIVE (NEGATIVE); BLOOD, URINE NEGATIVE (NEGATIVE); COLOR,URINE YELLOW (YELLOW); LEUKOCYTE ESTERASE ,URINE TRACE (NEGATIVE); NITRITE, URINE NEGATIVE (NEGATIVE); PROTEIN,URINE NEGATIVE (NEGATIVE); UGLUCOSE NEGATIVE (NEGATIVE)
[2024-05-17] MEDS ORDERED: ATA25 PO (17:31)
[2024-05-17 18:07] VITALS: BP 121/72; PULSE 93; RESP 16; TEMP 97.5; O2SAT 97
== END 2024-05-17 18:07 | disposition home or self-care (01) ==
LOC: MED 14:22
DX: F41.9 Anxiety disorder, unspecified (principal); Z79.899 Other long term (current) drug therapy
CPT/HCPCS: 36415; 80048; 80076; 81003; 81025; 83690; 83735; 84100; 85025; 99283

== ENCOUNTER 2024-07-02 17:21 | Emergency (ER) | payer MEDICAID ==
[~2024-07-02] VITALS: Ht 160 cm; Wt 100.9 kg
[~2024-07-02 17:21] MED LIST changes: -ACET-10509 PO; +ACET500T99 PO; +ATA25 PO
[2024-07-02 17:39] VITALS: BP 137/82; PULSE 88; RESP 18; TEMP 98.1; O2SAT 98
[2024-07-02] MEDS ORDERED: ALUMINUM HYD/MAG/SIMETHICONE 30 ML UDC ONE (18:51)
[2024-07-02] MEDS ORDERED: DICYCLOMINE HCL LIQUID 10 MG/5 ML UDC ONE (18:51)
[2024-07-02] MEDS: ACETAMINOPHEN EXTRA STRENGTH 500 MG TAB PO ONE (19:07)
[2024-07-02] MEDS: DICYCLOMINE HCL LIQUID 20 MG, ALUMINUM HYD/MAG/SIMETHICONE 30 ML, LIDOCAINE VISCOUS 2% ... PO ONE (19:08)
[2024-07-02] MEDS ORDERED: ONDA-188 PO (19:51)
[2024-07-02] MEDS ORDERED: FAMO-90 PO (19:51)
[2024-07-02] MEDS ORDERED: ACET500T99 PO (19:51)
== END 2024-07-02 20:02 | disposition home or self-care (01) ==
LOC: MED 17:21
DX: R51.9 Headache, unspecified (principal); K29.70 Gastritis, unspecified, without bleeding; Z79.899 Other long term (current) drug therapy
CPT/HCPCS: 99284

== ENCOUNTER 2024-08-01 22:37 | Emergency (ER) | payer MEDICAID ==
[~2024-08-01] VITALS: Ht 160 cm; Wt 102.5 kg
[2024-08-01 22:47] VITALS: BP 94/52; PULSE 87; RESP 18; TEMP 98.2; O2SAT 98
[2024-08-01 23:16] LABS: BASOPHILS % (AUTO) 0.5 % (0.0-2.0); EOSINOPHILS # (AUTO) 0.1 K/uL (0-0.4); EOSINOPHILS % (AUTO) 0.8 % (0.0-4.0); HEMATOCRIT 39.4 % (36-48); HEMOGLOBIN 13.3 g/dL (12.0-16.0); LYMPHOCYTES # (AUTO) 2.1 K/uL (2.5-16.5); LYMPHOCYTES % (AUTO) 22.5 % (20.5-51.1); MEAN CORPUSCULAR HEMOGLOBIN 31 pg (27-31); MEAN CORPUSCULAR HGB CONC 34 g/dL (33-37); MEAN CORPUSCULAR VOLUME 92.4 fL (80-94); MONOCYTES # (AUTO) 0.5 K/uL (0.8-1.0); MONOCYTES % (AUTO) 5.9 % (1.7-9.3); NEUTROPHILS # (AUTO) 6.5 K/uL (1.8-7.7); NEUTROPHILS % (AUTO) 70.3 % (42.2-75.2); PLATELET COUNT (AUTO) 300 K/uL (140-450); RED BLOOD CELL COUNT(AUTO) 4.27 MIL/uL (4.20-5.40); RED CELL DISTRIBUTION WIDTH 14.1 % (11.6-13.7); WHITE BLOOD COUNT (AUTO) 9.2 K/uL (4.8-10.8)
[2024-08-01 23:29] LABS: ANION GAP 9.4 (8-16); CALCIUM 8.7 mg/dL (8.5-10.1); CARBON DIOXIDE 30.2 mmol/L (21-32); CREATININE 0.8 mg/dL (0.6-1.3); POTASSIUM 3.6 mmol/L (3.5-5.1)
[2024-08-01 23:36] LABS: ALBUMIN 3.6 g/dL (3.4-5.0); BILIRUBIN,DIRECT 0.1 mg/dL (0.0-0.3); TOTAL BILIRUBIN 0.3 mg/dL (0.0-1.0); TOTAL PROTEIN, SERUM 7.9 g/dL (6.4-8.2)
[2024-08-02] MEDS ORDERED: DICYCLOMINE HCL LIQUID 10 MG/5 ML UDC ONE (01:28)
[2024-08-02] MEDS ORDERED: ALUMINUM HYD/MAG/SIMETHICONE 30 ML UDC ONE (01:28)
[2024-08-02] MEDS: DICYCLOMINE HCL LIQUID 20 MG, ALUMINUM HYD/MAG/SIMETHICONE 30 ML, LIDOCAINE VISCOUS 2% ... PO ONE (01:36)
[2024-08-02 02:05] LABS: APPEARANCE,URINE CLEAR (CLEAR); BILIRUBIN,URINE NEGATIVE (NEGATIVE); BLOOD, URINE NEGATIVE (NEGATIVE); COLOR,URINE YELLOW (YELLOW); LEUKOCYTE ESTERASE ,URINE NEGATIVE (NEGATIVE); NITRITE, URINE NEGATIVE (NEGATIVE); PH,URINE 6.5 (5.0-9.0); PROTEIN,URINE NEGATIVE (NEGATIVE); UGLUCOSE NEGATIVE (NEGATIVE)
[2024-08-02] MEDS ORDERED: FAMO-90 PO (04:23)
[2024-08-02 04:45] VITALS: BP 102/68; PULSE 87; RESP 16; TEMP 98; O2SAT 97
== END 2024-08-02 04:45 | disposition home or self-care (01) ==
LOC: MED 22:37
DX: K21.9 Gastro-esophageal reflux disease without esophagitis (principal); E66.9 Obesity, unspecified; R74.01 Elevation of levels of liver transaminase levels; Z86.39 Personal history of other endocrine, nutritional and metabolic disease; Z79.899 Other long term (current) drug therapy
CPT/HCPCS: 36415; 76705; 80048; 80076; 81003; 83690; 84703; 85025; 99284

== ENCOUNTER 2024-08-26 07:05 | Emergency (ER) | payer MEDICAID ==
[~2024-08-26] VITALS: Ht 160 cm; Wt 105.7 kg
[2024-08-26 07:11] VITALS: BP 107/46; PULSE 111; RESP 18; TEMP 97.2; O2SAT 99
[2024-08-26] MEDS ORDERED: HYDR25CA1 PO (07:31)
[2024-08-26] MEDS: ALUMINUM HYD/MAG/SIMETHICONE 30 ML UDC PO ONE (07:36)
[2024-08-26] MEDS: LORazepam 1 MG TAB PO ONE (07:36)
[2024-08-26] MEDS: FAMOTIDINE 20 MG TAB PO ONE (07:37)
[2024-08-26 09:02] VITALS: BP 134/76; PULSE 78; RESP 20; TEMP 98.4; O2SAT 98
== END 2024-08-26 09:00 | disposition home or self-care (01) ==
LOC: MED 07:05
DX: F41.0 Panic disorder [episodic paroxysmal anxiety] (principal); F15.90 Other stimulant use, unspecified, uncomplicated; K29.70 Gastritis, unspecified, without bleeding; K21.9 Gastro-esophageal reflux disease without esophagitis; Z86.39 Personal history of other endocrine, nutritional and metabolic disease; Z79.899 Other long term (current) drug therapy
CPT/HCPCS: 99284

== ENCOUNTER 2024-09-07 23:05 | Emergency (ER) | payer MEDICAID ==
[~2024-09-07] VITALS: Ht 160 cm; Wt 107.7 kg
[~2024-09-07 23:05] MED LIST changes: +HYDR25CA1 PO
[2024-09-07 23:10] VITALS: BP 116/68; PULSE 92; RESP 16; TEMP 98.3; O2SAT 98
[2024-09-07 23:37] LABS: APPEARANCE,URINE CLEAR (CLEAR); BILIRUBIN,URINE NEGATIVE (NEGATIVE); BLOOD, URINE NEGATIVE (NEGATIVE); COLOR,URINE YELLOW (YELLOW); LEUKOCYTE ESTERASE ,URINE 2+ (NEGATIVE); NITRITE, URINE POSITIVE (NEGATIVE); PROTEIN,URINE NEGATIVE (NEGATIVE); UGLUCOSE TRACE (NEGATIVE)
[2024-09-07 23:46] LABS: RBC,URINE 0-5 /HPF (0-5)
[2024-09-07 23:47] LABS: BACTERIA,URINE >30 (MANY) /HPF (None Seen); MUCUS,URINE 1+ /LPF (None Seen); SQUAMOUS EPITHELIAL CELL,UR 4-10 (MOD) /LPF (0-3 (FEW))
[2024-09-08] MEDS ORDERED: FAMO-90 PO (00:51)
[2024-09-08] MEDS ORDERED: ONDA-188 SL (00:51)
[2024-09-08] MEDS: FAMOTIDINE 20 MG TAB PO ONE (01:07)
[2024-09-08] MEDS: ONDANSETRON 4 MG ODT PO ONE (01:08)
[2024-09-08 01:10] VITALS: BP 116/68; PULSE 92; RESP 16; TEMP 98.3; O2SAT 98
== END 2024-09-08 01:10 | disposition home or self-care (01) ==
LOC: MED 23:05
DX: N39.0 Urinary tract infection, site not specified (principal); K29.70 Gastritis, unspecified, without bleeding; Z79.899 Other long term (current) drug therapy
CPT/HCPCS: 81001; 81025; 87086; 99283; Q0162

== ENCOUNTER 2024-09-10 14:01 | Emergency (ER) | payer MEDICAID ==
[~2024-09-10] VITALS: Ht 160 cm; Wt 105.7 kg
[2024-09-10 14:05] VITALS: BP 133/80; PULSE 92; RESP 22; TEMP 97.9; O2SAT 100
[2024-09-10] MEDS: ONDANSETRON 4 MG ODT PO ONE (14:48)
[2024-09-10] MEDS: ALUMINUM HYD/MAG/SIMETHICONE 30 ML UDC PO ONE (14:49)
[2024-09-10] MEDS: LORazepam 1 MG TAB PO ONE (14:53)
[2024-09-10 15:09] LABS: BASOPHILS # (AUTO) 0.2 K/uL (0.00-0.22); BASOPHILS % (AUTO) 1.9 % (0.0-2.0); EOSINOPHILS # (AUTO) 0.1 K/uL (0-0.4); EOSINOPHILS % (AUTO) 1.1 % (0.0-4.0); HEMATOCRIT 40.6 % (36-48); HEMOGLOBIN 13.7 g/dL (12.0-16.0); LYMPHOCYTES # (AUTO) 1.2 K/uL (2.5-16.5); MEAN CORPUSCULAR HEMOGLOBIN 31 pg (27-31); MEAN CORPUSCULAR HGB CONC 34 g/dL (33-37); MEAN CORPUSCULAR VOLUME 93.1 fL (80-94); MONOCYTES # (AUTO) 0.4 K/uL (0.8-1.0); MONOCYTES % (AUTO) 4.8 % (1.7-9.3); NEUTROPHILS # (AUTO) 6.6 K/uL (1.8-7.7); NEUTROPHILS % (AUTO) 78.2 % (42.2-75.2); PLATELET COUNT (AUTO) 329 K/uL (140-450); RED BLOOD CELL COUNT(AUTO) 4.36 MIL/uL (4.20-5.40); RED CELL DISTRIBUTION WIDTH 15.2 % (11.6-13.7); WHITE BLOOD COUNT (AUTO) 8.5 K/uL (4.8-10.8)
[2024-09-10 15:27] LABS: ANION GAP 10.3 (8-16); CALCIUM 9.6 mg/dL (8.5-10.1); CARBON DIOXIDE 31.2 mmol/L (21-32); CREATININE 0.8 mg/dL (0.6-1.3); POTASSIUM 3.5 mmol/L (3.5-5.1)
[2024-09-10 15:59] VITALS: BP 101/63; PULSE 73; RESP 22; TEMP 97.9; O2SAT 100
[2024-09-10] MEDS: ACETAMINOPHEN EXTRA STRENGTH 500 MG TAB PO ONE (15:59)
== END 2024-09-10 15:59 | disposition home or self-care (01) ==
LOC: MED 14:01
DX: K21.9 Gastro-esophageal reflux disease without esophagitis (principal); F41.9 Anxiety disorder, unspecified; R07.9 Chest pain, unspecified; Z79.899 Other long term (current) drug therapy
CPT/HCPCS: 36415; 71045; 80048; 84484; 85025; 93005; 99285; Q0162